=== PATIENT | male | born 1965 | race Caucasian/White ===

== ENCOUNTER 2025-01-21 09:14 | Outpatient (AMB) | payer OTHER, SELFPAY ==
--- NOTE | 2025-01-21 09:16 | MHC.PC.OV ---
Vital Signs 01/21/25 09:23 01/21/25 09:47 Height 5 ft 10 in Weight 186 lb 6 oz BMI 26.7 BP 158/90 H 160/90 H Blood Pressure Location Rt brachial Rt brachial Position Sitting Sitting Respiration 13 Pulse 102 H 98 Pulse Source Pulse Oximeter Pulse Oximeter Temp 97.5 F Temp Source Oral Pulse Oximetry (%) 99 Oxygen Delivery Method Room Air Intake Visit Reasons: CPE Intake Note: New patient to establish care and cpe Snuff Blender Required: No Allergies No Known Allergies Allergy (Verified 01/21/25 09:36) Medication List - Last Reconciled 01/21/25 by KIRSTY Campo No Known Home Meds Tobacco use date assessed: 01/21/25 Dental Screening Dental Screen Date: 01/21/25 Did you have a dental visit in the last 12 months?: Yes Did you have a dental problem in the last 6 months where you did not have access to dental care?: No Was dental information given to patient?: Patient has dentist HPI HPI Comments History of Present Illness Details 59 y/o M with HTN, fhx pancreatic ca (dad), fhx liver ca Social: retired, was working in finance ,lives w/ Surgery: appendectomy; hemorrhoid and fissure repair; Fhx: Dad pancreatic ca, Mom liver ca; 1 bro and 1 sister alive and well; 3 children alive and well. Health Maintenance Tdap declined Flu declined Colon 2013; cologaurd ordered today Specialist Optho wears glasses, last exam June 2024 History of Present Illness The patient is a 59-year-old male presenting to [facility], for a CPE, & blood pressure management. Previous PCP Dr Payne, no records avail. Essential Hypertension: - Managed previously with losartan. Was on 100mg QD. - Ceased medication post-mcfp; initial normal readings at home. - Stress from home factors noted. - Current readin/90 mmHg. History of Appendicitis: - Appendectomy in 1983. History of Hemorrhoids: - Hemorrhoid surgery in 2012. Past Surgical History - Appendectomy in 1983 - Hemorrhoidectomy in 2012 Family History - Father due to pancreatic cancer - Mother with liver cancer Social History - Retired from a career in finance - Recently moved from [place], [place] to current location - with three children - Does not engage in regular exercise or express interest in weight management Health Maintenance - Declines flu vaccination & Tdap - Last colonoscopy in 2013 showed non-cancerous polyps; prefers Cologuard testing - Last eye exam conducted in June with no abnormalities found Review of Systems - Cardiovascular: Reports history of elevated blood pressure; Denies chest pain, denies shortness of breath - Gastrointestinal: Denies recent abdominal pain - Dermatological: Denies changes or concerns aside from acknowledged weight gain - Genitourinary: Denies issues related to urination or prostate Physical Exam General: Well developed, well nourished, in no acute distress. Appears stated age. Head: Normocephalic, atraumatic. Eyes: Pupils are equal, round and reactive to light and accommodation. Conjunctivae are clear. Scleras nonicteric bilat. Vision grossly normal. Ears: TMs clear AU, EACS WNL. Nose: Patent, without discharge. Neck: No carotid bruit bilat. Supple, no adenopathy or thyromegaly. Breast: Edu on SBE Lungs: Clear to auscultation bilaterally. No rales, rhonchi or wheeze noted. Good air flow in all gaspar. Heart: Regular rate and rhythm. No murmurs, click, rubs or gallops are noted. Abdomen: Bowel sounds present in all quadrants. The abdomen is soft, nontender, with no masses or organomegaly noted. No hernias are noted. : Deferred. Reviewed WILLIE & recommendations Pulses: Peripheral pulses are equal and palpable bilaterally. Extremities: No clubbing, cyanosis nor edema is noted. Neurologic: Gait and station normal. Cranial Nerves 2-12 intact. Motor strength grossly symmetrical and intact. No sensory loss. Balance normal. Skin: No rashes, ulcers, or lesions noted. Turgor is good. Skin color is good. Hair and nails are without abnormalities, small flat black mole posterior back, 2 slightly raised pink skin lesion on back. Psych: Normal eye contact, affect and mood appropriate, and normal interactions. Patient is alert and appropriate to context. Results Pending Discussion Notes During our discussion, I emphasized the current elevated status of the patient's blood pressure, currently at 160/90 mmHg, which necessitates re-initiation of antihypertensive therapy. The patient had previously used losartan, which I recommended restarting at 25 mg & titrate to effect. I highlighted the importance of monitoring serum electrolytes and kidney function due to the medication's effect. For colorectal screening, I reviewed the option of the Cologuard test which was well-received compared to a traditional colonoscopy. Despite declining a tetanus update or flu vaccine, we discussed its importance in preventive care. The urgency of follow-up in the next six to eight weeks for a reassessment of therapy efficacy and potential labs for formal checks was also articulated. I ensured the patient understood the portal access for direct communication and encouraged active involvement in health management decisions. Patient was given time to ask questions. All questions were answered to their satisfaction. Assessment and Plan 1. Essential Hypertension - Start losartan 25 mg daily. - Check electrolytes and renal function. - Reassess blood pressure control in six to eight weeks. 2. Preventive Care/Health Maintenance - Proceed with Cologuard for colorectal screening. - Labs today 3. Skin examination - Inform about dermatology options if warranted. - Declined referral @ this time. Patient Instructions - Start taking the losartan 25 mg daily as prescribed. - Await Cologuard test delivery and return sample as instructed. - Look out for portal email for communication and sign-up. - Visit lab for blood draw as directed after scheduling. - Report any adverse effects from medication or changes in health. - Schedule a follow-up visit in six to eight weeks or call sooner if issues arise. Consent Verbal consent was obtained from the patient for the initiation of losartan 25 mg daily, understanding the risks of electrolyte imbalance and the necessity for lab monitoring to address these. The patient agreed to perform Cologuard testing and understood the alternative benefits compared to colonoscopy in terms of convenience and non-invasiveness. Consent was discussed emphasizing informed patient choice and active involvement in health care decisions. Patient was informed and verbally consented to the use of an ambient scribe for clinic note documentation during this visit. An additional 15 minutes was spent addressing the problem(s) noted at todays visit. This includes time spent before the visit reviewing the chart, time spent during the visit, and time spent after the visit on documentation reviewing laboratory results, diagnostic imaging, medications, performing a medically necessary evaluation, counseling on diagnoses, care coordination, ordering appropriate tests, ordering appropriate medications, review of tests performed by other providers, reporting test results with the patient, communication with other healthcare providers. [facility] Medical History (Updated 01/21/25 @ 10:02 by Doris Candelaria [facility]) Acute hemorrhoid Surgical History (Updated 01/21/25 @ 09:28 by Radha Cavazos MA) Hx of appendectomy Hx of colonoscopy (~06/2013) Family History (Updated 01/21/25 @ 09:29 by Radha Cavazos MA) Mother HTN (hypertension) Cancer Father Cancer Sister Thyroid disorder Social History (Updated 01/21/25 @ 09:26 by Radha Cavazos MA) Household Members: Spouse Both parents involved: No Caregiver staying overnight: No Housing: Condominium Are you a primary care information associate to a significant other at home: No Do you presently have visiting nurse or other home services: No 75 years or older and lives alone: No Alcohol intake: current Alcohol intake frequency: a few times a month Patient Tobacco Use Status: Never used Tobacco e-Cigarette/Vaping Use: Never Used Second Hand Smoke Exposure: No service: No Current occupational status: retired Current occupational exposures/hazards: No Cognitive needs: No Hearing needs: No Vision needs: Yes (wear glasses) Questionnaire PHQ-9 Over the last 2 weeks, how often have you been bothered by any of the following problems? 1. Little interest or pleasure in doing things: not at all 2. Feeling down, depressed, or hopeless: not at all 3. Trouble falling or staying asleep, or sleeping too much: not at all 4. Feeling tired or having little energy: not at all 5. Poor appetite or overeating: not at all 6. Feeling bad about yourself - or that you are a failure or have let yourself or your family down: not at all 7. Trouble concentrating on things, such as reading the newspaper or watching television: not at all 8. Moving or speaking so slowly that other people could have noticed. Or the opposite - being so fidgety or restless that you have been moving around a lot more than usual: not at all 9. Thoughts that you would be better off or of hurting yourself in some way: not at all Total score: 0 Depression Screening Interpretation: Negative Depression Screening Done: Yes 68384 - PHQ-9 Billing: Yes Source: Developed by Drs. Dannie Hawkins, Mercy Sprague, Tomer Issa and colleagues, with an educational salvatore from [employer]. Thrive Questionnaire Date Thrive assessed: 01/21/25 I am a: Patient What is your living situation today?: I have a steady place to live Within the past 12 months, did the food you bought not last and you didn't have the money to get more?: Never true Within the past 12 months, did you worry whether your food would run out before you got money to buy more?: Never true Do you have trouble paying for medicines?: No Do you have trouble getting transportation to medical appointments?: No Do you have trouble paying your heating and electricity bill?: No Do you have trouble taking care of your child, family member or friend?: No Do you have trouble with day-to-day activities such as bathing, preparing meals, shopping, managing finances, etc.?: No Are you currently unemployed and looking for a job?: No Are you interested in more education?: No Please select the resources that you would like help with: None Currently or been in a relationship where the following occur: No concerns reported THRIVE Score: 0 AUDIT C Alcohol Use Questionnaire (AUDIT-C) 1. How often do you have a drink containing alcohol?: 4 or more times a week 2. How many drinks containing alcohol do you have on a typical day when you are drinking?: 10 or more 3. How often do you have six or more drinks on one occasion?: Weekly Total Score: 11 Score Reviewed/Action Taken: Yes JACQUIE-7 AMB Questionnaire JACQUIE-7 Date JACQUIE - 7 assessed: 01/21/25 Feeling nervous, anxious, or on edge: 0 = Not at all Not being able to stop or control worryin = Not at all Worrying too much about different things: 0 = Not at all Trouble relaxin = Not at all Being so restless that it is hard to sit still: 0 = Not at all Becoming easily annoyed or irritable: 0 = Not at all Feeling afraid as if something awful might happen: 0 = Not at all Total JACQUIE-7 score (0-4 normal; 5-9 mild; 10-14 moderate; 15-21 severe): 0 Source: Developed by Drs. Dannie Hawkins, Mercy Sprague, Tomer Issa and colleagues, with an educational salvatore from [employer]. JCAQUIE-7 Assessment Billing JACQUIE-7 Assessment Tool: JACQUIE-7 Assessment 30547 Physical exam (Primary Care) Vital Signs: Last Vital Signs Temp 97.5 F 01/21/25 09:23 Pulse 102 H 01/21/25 09:23 Resp 13 01/21/25 09:23 BP 158/90 H 01/21/25 09:23 Pulse Ox 99 01/21/25 09:23 Oxygen Delivery Method Room Air 01/21/25 09:23 BMI result Body Mass Index 26.7 Tobacco/Smoking Status: Tobacco use Status Tobacco use date assessed 01/21/25 01/21/25 09:21 Patient Tobacco Use Status Never used Tobacco 01/21/25 09:26 e-Cigarette/Vaping Use Never Used 01/21/25 09:26 PHQ-9: PHQ-9 Score PHQ-9: Total score 0 01/21/25 09:21 Depression Screening Interpretation: Negative Thrive Assessment: Date of Thrive Assessment Date Thrive assessed 01/21/25 01/21/25 09:21 Currently or been in a relationship where the following occur: No concerns reported Coding Level of Care Code New Pt Level 2 (93832) New Pt Prev Care 40-64y(12346) Diagnoses Encounter for general adult medical examination without abnormal findings Z00.00 Laboratory exam ordered as part of routine general medical examination Z00.00 Primary hypertension I10 Hypertension type: primary hypertension Family history of liver cancer Z80.0 Family history of pancreatic cancer Z80.0 Tetanus, diphtheria, and acellular pertussis (Tdap) vaccination declined Z28.21 Influenza vaccination declined Z28.21 Colon cancer screening Z12.11 Skin mole D22.9 Encounter to establish care with new provider Z76.89 Additional Codes JACQUIE-7 Assessment Billing - JACQUIE-7 Assessment Tool: JACQUIE-7 Assessment 58140 ([id number]) PHQ-9 - 48415 - PHQ-9 Billing: Yes ([id number]) Assessment & Plan Assessment & Plan (1) Encounter for general adult medical examination without abnormal findings: Onset Date: ~01/21/25 Code(s): Z00.00 - Encounter for general adult medical examination without abnormal findings Category: Medical (2) Laboratory exam ordered as part of routine general medical examination: Code(s): Z00.00 - Encounter for general adult medical examination without abnormal findings Category: Medical (3) HTN (hypertension): Code(s): I10 - Essential (primary) hypertension Category: Medical Qualifiers: Hypertension type: primary hypertension Qualified Code(s): I10 - Essential (primary) hypertension (4) Family history of liver cancer: Comment: Mom Code(s): Z80.0 - Family history of malignant neoplasm of digestive organs Category: Medical (5) Family history of pancreatic cancer: Comment: dad Code(s): Z80.0 - Family history of malignant neoplasm of digestive organs Category: Medical (6) Tetanus, diphtheria, and acellular pertussis (Tdap) vaccination declined: Code(s): Z28.21 - Immunization not carried out because of patient refusal Category: Medical (7) Influenza vaccination declined: Code(s): Z28.21 - Immunization not carried out because of patient refusal Category: Medical (8) Colon cancer screening: Code(s): Z12.11 - Encounter for screening for malignant neoplasm of colon Category: Medical (9) Skin mole: Comment: declined derm referral Code(s): D22.9 - Melanocytic nevi, unspecified Category: Medical (10) Encounter to establish care with new provider: Code(s): Z76.89 - Persons encountering health services in other specified circumstances Plan , Orders: Orders Hemoglobin A1c Today I10 - Essential (primary) hypertension, Z00.00 - Encounter for general adult medical examination without abnormal findings Comprehensive Met. Panel Today I10 - Essential (primary) hypertension, Z00.00 - Encounter for general adult medical examination without abnormal findings Lipid Panel Today I10 - Essential (primary) hypertension, Z00.00 - Encounter for general adult medical examination without abnormal findings Prostate Specific Antigen Scr Today I10 - Essential (primary) hypertension, Z00.00 - Encounter for general adult medical examination without abnormal findings Referrals Cologuard Test Z12.11 - Encounter for screening for malignant neoplasm of colon Medications: New losartan 25 mg PO DAILY 90 tabs 0RF Patient Instructions: Walk-In Care (Urgent Care): We Make it Easy Walk-in for urgent medical issues such as: ? Seasonal Allergies ? Insect Bites ? Cough ? Diarrhea ? Acute Asthma Attacks ? Back, Knee or Joint Pain ? Ear Infection ? Fever without a Rash ? Headaches ? Nausea ? [place], Rash or Skin Irritation ? Sore Throat ? Sports Physicals ? Vomiting Most insurances are accepted. Patients do not need to be part of the [facility] to seek care at the walk-in clinic. Locations [address] [place], [place] Open Saturday through Saturday 8am-5pm *Hours may vary due to staffing availability. To confirm Walk-In Care hours please call. [address] [facility] , [place] [address] ? [phone] [facility] Care in [place] provides services to ages 18 and over. Open Saturday-Saturday: 7 a.m. to 5 p.m. and Saturday: 9 a.m. to 3 p.m.* *Hours may vary due to staffing availability. To confirm Walk-In Care hours in [place], please call [phone]. [address] [place] [address] ? [phone] [facility] Care in [place] provides services to ages 12 and over. Open Saturday-Saturday: 8 a.m. to 5 p.m. Hours may vary due to staffing availability. To confirm Walk-In Care hours in [place], please call [phone]. LABORATORY SERVICES: [facility] ? Primary Location [address] [place] [address] Saturday through Saturday 6:00 AM ? 5:00 PM Saturday 7:00 AM ? 11:00 AM* [phone] The [facility] is centrally located near the front entrance of the [facility] for easy outpatient access. Convenient parking is provided for outpatients. *Hours may vary due to staffing availability. To confirm Laboratory hours for any location, please call [phone]. Offsite Location For your convenience, we offer offsite laboratory draw stations at the following locations: [address] [place] [address] ? [facility] [address], [address] Saturday through Saturday 7:30 AM ? 1:00 PM* [phone] *Hours may vary due to staffing availability. To confirm Laboratory hours for any location, please call [phone]. [place] ? [address] Saturday through Saturday 6:00 AM ? 3:30 PM* Saturday 6:30 AM ? 3 PM* [phone] *Hours may vary due to staffing availability. To confirm Laboratory hours for any location, please call [phone]. [address] [facility] Saturday through Saturday 7:30 AM ? 4:00 PM* [phone] *Hours may vary due to staffing availability. To confirm Laboratory hours for any location, please call [phone]. [address] [facility] Saturday through 9:00 AM ? 4:00 PM* *Hours may vary due to staffing availability. To confirm Laboratory hours for any location, please call [phone]. Appointments are not necessary. Walk-ins are welcome. Like all the departments throughout the [facility], our Lab undergoes frequent reviews to ensure the quality and accuracy of test results, and our staff takes special pride in its status as a nationally accredited facility. Patient Portal: [facility] ONE PATIENT. ONE RECORD. BETTER CARE. [facility] has a fully integrated, cutting-edge mobile electronic health information system that has revolutionized the way we care for our patients and manage our organization. This system improves communication and coordination enabling us to provide safe, higher-quality care, and an overall positive experience for staff and patients. Our first priority, as always, is to deliver the highest quality care possible. The system is running in the background supporting that priority. This portal is for all [facility] services and practices. If you are experiencing any technical difficulties with enrolling or logging into the Patient Portal please complete the [facility] Patient Portal Technical Support Form. [facility] now offers a new secure on-line interactive tool for patients to review their health information ? ?Patient Portal. This interactive web portal will enable patients and their families to take an active role in their care by providing easy, secure access to their health information via the internet. The Patient Portal provides patients with instant access to their health information, including laboratory results, medications, allergies, demographic information, visit history, and more. In addition to managing their own care, parents and health care proxies with authorized consent will appreciate the ability to access the records of those individuals for whom they provide care. Please note: if you wish to gain access (Proxy) to another patient?s portal, you will be required to come to the Medical Records Department in person at [facility]. Both the patient giving proxy access and the proxy will need to provide photo identification and complete the appropriate authorization. The Patient Portal also allows track their appointments online. The [facility] Patient Portal also saves patients time by allowing them to submit updates to their demographic and contact information prior to their visits. Portal email notifications will also alert patients to any new activity on their portal, such as test results and new appointments. In order to initially enroll in the [facility] Patient Portal, you will need to enter some required information including the following: your [facility] Medical Record number your personal home email address name date of Please note: In order to enroll in the [facility] Patient Portal, we need to have your email address on file in your electronic medical record. ?The email address needs to be specific for one person (yourself) in order for your Portal enrollment to be successful. ?You can update your email address in person with our Registration staff when you are registering for a hospital visit. ?Otherwise, you will need to come to the Health Information Management (Medical Records) Department at [facility]. ?We are open from Saturday ? Saturday from 7:30 a.m. ? 4:30 p.m. ?You will be required to present a photo id. Once you have successfully enrolled in the Patient Portal, you will receive a one-time user id and password for the Portal, sent to your email address. ?This will allow you to log into the Patient Portal within 99 hrs and reset your own logon id and password, and define personal security questions. ?Once your permanent login and password have been set, you can log into the [facility] Patient Portal at any time via the blue button above or from the Portal Logon button on any page of the [facility] website. [facility] encourage all of our patients to enroll in Patient Portal as it presents a valuable opportunity for patients and their families to actively participate in their care and stay healthy Welcome to [facility]. ?We look forward to working with you. Health screenings for men You should visit your health care provider regularly, even if you feel healthy. The purpose of these visits is to: Screen for medical issues Assess your risk for future medical problems Encourage a healthy lifestyle Update vaccinations and other preventive care services Help you get to know your provider in case of an illness Information Even if you feel fine, you should still see your provider for regular checkups. These visits can help you avoid problems in the future. For example, the only way to find out if you have high blood pressure is to have it checked regularly. High blood sugar and high cholesterol level also may not have any symptoms in the early stages. Simple blood tests can check for these conditions. There are specific times when you should see your provider or receive specific health screenings. The [place] Preventive Services Task Force publishes a list of recommended screenings. Below are screening guidelines for men ages 40 to 64. BLOOD PRESSURE SCREENING Have your blood pressure checked at least once every year. Watch for blood pressure screenings in your area. Ask your provider if you can stop in to have your blood pressure checked. Ask your provider if you need your blood pressure checked more often if: You have diabetes, heart disease, kidney problems, or are overweight or have certain other health conditions You have a first-degree relative with high blood pressure You are Black Your blood pressure top number is from 120 to 129 mm Hg, or the bottom number is from 70 to 79 mm Hg If the top number is 130 mm Hg or greater or the bottom number is 80 mm Hg or greater, this is considered stage 1 hypertension. Schedule an appointment with your provider to learn how you can lower your blood pressure. Effects of age on blood pressure CHOLESTEROL SCREENING Cholesterol screening should begin at age 35 for men with no known risk factors for coronary heart disease. Repeat cholesterol screening should take place: Every 5 years for men with normal cholesterol levels More often if changes occur in lifestyle (including weight gain and diet) More often if you have diabetes, heart disease, kidney problems, or certain other conditions COLORECTAL CANCER SCREENING If you are under age 45, talk to your provider about getting screened. You may need to be screened if you have a strong family history of colon cancer or polyps. Screening may also be considered if you have risk factors such as a history of inflammatory bowel disease or polyps. If you are age 45 to 75, you should be screened for colorectal cancer. There are several screening tests available: A stool-based fecal occult blood (gFOBT) or fecal immunochemical test (FIT) every year A stool sDNA test every 1 to 3 years Flexible sigmoidoscopy every 5 years or every 10 years with stool testing FIT done every year CT colonography (virtual colonoscopy) every 5 years Colonoscopy every 10 years You may need a colonoscopy more often if you have risk factors for colorectal cancer, such as: Ulcerative colitis A personal or family history of colorectal cancer A history of growths in your colon called adenomatous polyps DENTAL EXAM Go to the dentist once or twice every year for an exam and cleaning. Your dentist will evaluate if you have a need for more frequent visits. DIABETES SCREENING All adults who do not have risk factors for diabetes should be screened starting at age 35 and repeated every 3 years. If you have other risk factors for diabetes, such as a first degree relative with diabetes, overweight or obesity, high blood pressure, prediabetes, or a history of heart disease, you may be tested more often. If you are overweight and have other risk factors, such as high blood pressure and are planning to become , screening is recommended. EYE EXAM Have an eye exam every 2 to 4 years ages 40 to 54 and every 1 to 3 years ages 55 to 64. Your provider may recommend more frequent eye exams if you have vision problems or glaucoma risk. Have an eye exam that includes an examination of your retina (back of your eye) at least every year if you have diabetes. IMMUNIZATIONS Commonly needed vaccines include: Flu shot: get one every year COVID-19 vaccine: ask your provider what is best for you Tetanus-diphtheria and acellular pertussis (Tdap) vaccine: have as one of your tetanus-diphtheria vaccines if you did not receive it as an adolescent Tetanus-diphtheria: have a booster (or Tdap) every 10 years Varicella vaccine: receive 2 doses if you never had chickenpox or the varicella vaccine and were born in 1979 or after Hepatitis B vaccine: receive 2, 3, or 4 doses, depending on your exact circumstances, if you did not receive these as a child or adolescent, until age 59 Shingles (herpes zoster) vaccine: at or after age 50 Ask your provider if you should receive other immunizations, especially if you have certain medical conditions, such as diabetes or are at increased risk for some diseases such as pneumonia. INFECTIOUS DISEASE SCREENING Screening for hepatitis C: all adults ages 18 to 79 should get a one-time test for hepatitis C. Screening for human immunodeficiency virus (HIV): all people ages 15 to 65 should get a one-time test for HIV. Depending on your lifestyle and medical history, you may need to be screened for infections such as syphilis, chlamydia, and other infections. LUNG CANCER SCREENING You should have an annual screening for lung cancer with low-dose computed tomography (LDCT) if: You are age 50 to 80 years AND You have a 20 pack-year smoking history AND You currently smoke or have quit within the past 15 years OSTEOPOROSIS SCREENING If you are age 50 to 64 and have risk factors for osteoporosis, you should discuss screening with your provider. Risk factors can include long-term steroid use, low body weight, smoking, heavy alcohol use, having a fracture after age 50, or a family history of hip fracture or osteoporosis. Osteoporosis PHYSICAL EXAM All adults should visit their provider from time to time, even if they are healthy. The purpose of these visits is to: Screen for diseases Assess risk of future medical problems Encourage a healthy lifestyle Update vaccinations and other preventive care services Maintain a relationship with a provider in case of an illness Your height, weight, and body mass index (BMI) should be checked at every exam. During your exam, your provider may ask you about: Depression and anxiety Diet and exercise Alcohol and tobacco use Safety, such as use of seat belts and smoke detectors Your medicines and risk for interactions PROSTATE CANCER SCREENING If you're 55 through 69 years old, before having the test, talk to your provider about the pros and cons of having a PSA test. Ask about: Whether screening decreases your chance of dying from prostate cancer. Whether there is any harm from prostate cancer screening, such as side effects from testing or overtreatment of cancer when discovered. Whether you have a higher risk of prostate cancer than others. If you are age 55 or younger, screening is not generally recommended. You should talk with your provider about if you have a higher risk for prostate cancer. Risk factors include: Having a family history of prostate cancer (especially a brother or father) Being If you choose to be tested, the PSA blood test is repeated over time (yearly or less often), though the best frequency is not known. Prostate examinations are no longer routinely done on men with no symptoms. Prostate cancer SKIN EXAM Your provider may check your skin for signs of skin cancer, especially if you're at high risk. People at high risk include those who have had skin cancer before, have close relatives with skin cancer, or have a weakened immune system. TESTICULAR EXAM The [place] Preventive Services Task Force (USPSTF) now recommends against performing testicular self-exams. Doing testicular self-exams has been shown to have little to no benefit.
[2025-01-21 09:23] VITALS: BP 158/90; PULSE 102; RESP 13; TEMP 36.4; O2SAT 99; BMI 26.7
[2025-01-21 09:47] VITALS: BP 160/90; PULSE 98
--- OUTSIDE RECORDS SUMMARY | 2025-01-21 10:25 | XMS_ITS | Patient Health Record ---
Author Organization [facility] Primary C are [facility] Address [address] [place] [address] Care Team Providers Care Fish Grader Name Role Phone Jony Krupa Primary Care Provider Reason For Referral No Information Medications Medication SIG (Take, Route, Frequency, Duration) Notes Start Date End Date Status Zithromax 500MG TAB 1 Every Day pc ORAL 1 Every Day pc; Duration: 0 (Olivier) 06/10/2009 Active Rondec DM 3.5-1-3MG/ML LIQUID 2 tsp q 6 hr prn ORAL 2 tsp q 6 hr prn; Duration: 0 (Olivier) 06/10/2009 Active Social History Social History Drugs/Alcohol: Social Info Question Answer Notes Drugs Have you used drugs other than those for medical reasons in the past 12 months? No Problems Problem Type SNOMED Code ICD Code Onset Dates Problem Status W/U Status Risk Notes Problem Urinary tract infectious disease (47253960) Urinary tract infection, site not specified (599.0) 12/15/19 04 Active confirmed (Olivier) Problem Dysuria (97125016) Dysuria (788.1) 12/28/19 04 Active confirmed (Olivier) Problem General examination of patient (935916936) ANNUAL PHYSICAL (V70.0) 01/07/20 04 Active confirmed (Olivier) Problem Venereal disease screening (procedure) (875861433) Screening examination for venereal disease (V74.5) 03/12/20 05 Active confirmed (Olivier) Problem Acute upper respiratory infection (49918788) Acute upper respiratory infections of unspecified site (465.9) 09/18/19 08 Active confirmed (Olivier) Problem Acute pain (960519485) Other acute pain (338.19) 01/27/20 10 Active confirmed (Olivier) Problem Nicotine user (653806042) Nicotine Abuse (305.1) 03/12/20 05 Active confirmed (Olivier) Problem Hyperlipidemia (78292609) Other and unspecified hyperlipidemia (272.4) 03/12/20 05 Active confirmed (Olivier) Problem Hypothyroidism (33035891) Unspecified hypothyroidism (244.9) 03/12/20 05 Active confirmed (Olivier) Plan Of Treatment No Information
--- OUTSIDE RECORDS SUMMARY | 2025-01-21 10:26 | XMS_ITS | Patient Health Record ---
Author Organization [facility] Address [address] [place] [address] Care Team Providers Care Drill Press Tender Name Role Phone Gene Hsieh Primary Care Provider Shine Ennis Unavailable [phone] Allergies No Known Allergies Reason For Referral No Information Medications Medication SIG (Take, Route, Frequency, Duration) Notes Start Date End Date Status Clenpiq 10-3.5-12 MG-GM -GM/175ML Solution Follow instructions given by office Orally as directed; Duration: 2 days 12/26/2022 Activ e Losartan Potassium A ctive Social History Social History Additional Details Category Social Info Options Details Drugs/Alcohol: Alcohol Use: NONE Tobacco use NONE Section Notes: No history of drug abuse. No history of drug abuse. No history of drug abuse. No history of smoking alcoho l and substance abuse. 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 This is likely from hemorrhoids. He may have proctitis, colitis, colon polyps or colonic AVMs. Problem Constipation (10778840) Constipation, unspecified (K59.00) Active confirmed Constipation is nonspecific and stable. Problem Abnormal weight loss (178992330) Abnormal weight loss (R63.4) Active confirmed Weight loss is stabilized at this time. Problem Hemorrhoids (43773772) Hemorrhoids (455.0) Active confirmed Problem Constipation (25079633) Constipation (564.00) Active confirmed Constipation is nonspecific. Problem Rectal mass (601912308) Rectal Mass (787.99) Active confirmed Problem Screening for malignant neoplasm of colon (923147706) Encounter for screening for malignant neoplasm of colon (Z12.11) Active confirmed He is a candidate for screening colonoscopy. I had a long discussion with the patient reviewed all the information with him regarding colonoscopy. He is agreeable to have a colonoscopy done. Plan Of Treatment Pending Test Test Name Order Date -COLONOSCOPY 12/26/2022 Insurance Providers Payer Name Payer Address Payer Phone Subscriber Number Group Number Insured Name Patient Relationship to Insured Coverage Start Date Coverage End Date [employer] [address] [place] [address] [id number] Evan Carmen Self - patient is the insured Medical (General) History Medical History History ICD Code nonsignificant Surgical History Surgery Date(Month/Year) Appendectomy
== END 2025-01-21 09:58 | disposition home or self-care (01) ==
LOC: HO.HMCFM 09:15
PROVIDERS: PCP Nurse Practitioner Family; Visit Provider Nurse Practitioner Family
DX: Z00.00 Encounter for general adult medical examination without abnormal findings (principal); I10 Essential (primary) hypertension; D22.9 Melanocytic nevi, unspecified; Z80.0 Family history of malignant neoplasm of digestive organs; Z28.21 Immunization not carried out because of patient refusal; Z12.11 Encounter for screening for malignant neoplasm of colon; Z76.89 Persons encountering health services in other specified circumstances

== ENCOUNTER → 2025-01-21 09:14 | Outpatient (BNVA) | payer OTHER, SELFPAY | PROVIDERS: PCP Nurse Practitioner Family; Visit Provider Nurse Practitioner Family | DX: Z00.00 Encounter for general adult medical examination without abnormal findings (principal); I10 Essential (primary) hypertension; D22.9 Melanocytic nevi, unspecified; Z76.89 Persons encountering health services in other specified circumstances; Z80.0 Family history of malignant neoplasm of digestive organs; Z28.21 Immunization not carried out because of patient refusal | CPT/HCPCS: 96127; 99202; 99386 ==

== ENCOUNTER 2025-02-24 07:34 | Outpatient (REF) | payer OTHER, SELFPAY ==
[2025-02-24 10:43] LABS: Alanine Aminotransferase 56 U/L (0-40); Albumin Level 4.4 g/dL (3.5-5.0); Alkaline Phosphatase 62 U/L (39-117); Anion Gap 13 (12-20); Aspartate Amino Transferase 58 U/L (5-37); Blood Urea Nitrogen 11 mg/dL (9-16); Calcium 9.2 mg/dL (8.4-10.2); Carbon Dioxide 29 mmol/L (22-29); Chloride 98 mmol/L (96-108); Cholesterol 209 mg/dL (<200); Estimated Glomerular Filt Rate > 60; HDL Cholesterol 82 mg/dL (>40); Potassium 4.2 mmol/L (3.3-5.1); Sodium 136 mmol/L (135-145); Total Protein 7.2 g/dL (6.5-8.0); Triglycerides 74 mg/dL (<150)
--- OUTSIDE RECORDS SUMMARY | 2025-02-24 15:06 | XMS_ITS | Patient Health Record ---
Author Organization [facility] Primary C are [facility] Address [address] [place] [address] [address] [place] [address] Care Team Providers Care Food Service Ambassador Name Role Phone Jony Krupa Primary Care [...] Problem Status W/U Status Risk Notes Problem Acute upper respiratory infection (86820048) Acute upper respiratory infections of unspecified site (465.9) 09/18/19 08 Active confirmed (Olivier) Problem Acute pain (632801060) Other acute pain (338.19) 01/27/20 10 Active confirmed (Olivier) Problem Hypothyroidism (75630308) Unspecified hypothyroidism (244.9) 03/12/20 05 Active confirmed (Olivier) Problem Hyperlipidemia (06923516) Other and unspecified hyperlipidemia (272.4) 03/12/20 05 Active confirmed (Olivier) Problem Nicotine user (028613043) Nicotine Abuse (305.1) 03/12/20 05 Active confirmed (Olivier) Problem Venereal disease screening (procedure) (253679917) Screening examination for venereal disease (V74.5) 03/12/20 05 Active confirmed (Olivier) Problem General examination of patient (444952596) ANNUAL PHYSICAL (V70.0) 01/07/20 04 Active confirmed (Olivier) Problem Dysuria (61715651) Dysuria (788.1) 12/28/19 04 Active confirmed (Olivier) Problem Urinary tract infectious disease (52843322) Urinary tract infection, site not specified (599.0) 12/15/19 04 Active confirmed (Olivier) Plan Of Treatment No Information
== END 2025-02-24 07:35 | disposition home or self-care (01) ==
LOC: HO.HMGCLDS 07:34
PROVIDERS: PCP Nurse Practitioner Family; Visit Provider Nurse Practitioner Family
DX: Z00.00 Encounter for general adult medical examination without abnormal findings (principal); I10 Essential (primary) hypertension
CPT/HCPCS: 36415; 80053; 80061; 83036; 84153

== ENCOUNTER 2025-03-03 09:35 | Outpatient (AMB) | payer OTHER, SELFPAY ==
--- NOTE | 2025-03-03 09:37 | A.OFFPC_ITS ---
Vital Signs 03/03/25 09:40 03/03/25 10:01 Height 5 ft 10 in Weight 187 lb 8 oz BMI 26.9 BP 162/80 H 138/76 Blood Pressure Location Lt brachial Lt brachial Position Sitting Sitting Respiration 14 Pulse 93 Pulse Source Pulse Oximeter Temp 97.6 F Temp Source Oral Pulse Oximetry (%) 98 Oxygen Delivery Method Room Air Intake Visit Reasons: 6 -8 weeks BP recheck Intake Note: Follow up on htn. Ingot Buggy Operator Required: No Allergies No Known Allergies Allergy (Verified 03/03/25 09:54) Medication List - Last Reconciled 03/03/25 by Doris Candelaria, NURSING MANAGER- losartan 25 mg PO DAILY Tobacco use date assessed: 03/03/25 Dental Screening Dental Screen Date: 03/03/25 Did you have a dental visit in the last 12 months?: Yes Did you have a dental problem in the last 6 months where you did not have access to dental care?: No Was dental information given to patient?: Patient has dentist HPI HPI Comments History of Present Illness Details 59 y/o M with HTN, fhx pancreatic ca (da d), fhx liver ca, elevated LFT Social: retired, was working in finance ,lives w/ Surgery: appendectomy; hemorrhoid and fissure repair; Fhx: Dad pancreatic ca, Mom liver ca; 1 bro and 1 sister alive and well; 3 children alive and well. Health Maintenance Tdap declined Flu declined Colon 2013; cologaurd 02/2025 negative Specialist Optho wears glasses, last exam June 2024 History of Present Illness The patient is a 60-year-old individual presenting for a follow-up of hypertension. Hypertension: - The patient was started on losartan 25 mg daily at the last office visit. - The patient has not been monitoring bl ood pressure at home. - The patient denies any chest pain, hea daches, or visual disturbances. - The patient has a history of passing o ut twice on a 100 mg dose of losartan previously. Elevated liver enzymes: - Labs from February 24 showed an AST of 58 and an ALT of 56. - The patient has no prior history of el evated liver enzymes. - The patient reports a recent increase in alcohol intake due to social gatherings before an upcoming trip. - The patient denies any abdominal pain. Hypercholesterolemia: - Recent lab results showed a total chol esterol of 209 and an LDL of 113. - The patient's HDL was noted to be prot ective at 82. Preventative care: - A recent Cologuard test was negative, and a repeat is recommended in three years. - The initial Cologuard test had to be r epeated due to a problem with the first sample, possibly related to a missing buffering agent. - The patient's PSA for prostate screeni ng was normal at 1.4. Going to [place] w/ ; Dtr just had a baby (lives in [place]) Past Medical History - Hypertension - History of syncope on 100 mg of losart an - Plantar fasciitis Review of Systems - Cardiovascular: Denies chest pain. - Neurological: Denies headaches and vis ual disturbances. - Gastrointestinal: Denies abdominal kandice n. Physical Exam General: Well developed, well nourished, in no acute distress. Appears stated age. Head: Normocephalic, atraumatic. Eyes: Pupils are equal, round and reactive to light and accommodation. Conjunctivae are clear. Scleras nonicteric bilat Lungs: Clear to auscultation bilaterally. No rales, rhonchi or wheeze noted. Good air flow in all gaspar. Heart: Regular rate and rhythm. No murmurs, click, rubs or gallops are noted. Abdomen: Bowel sounds present in all quadrants. The abdomen is soft, nontender, with no masses or organomegaly noted. No hernias are noted. Musculoskeletal: Joints are nontender, without swelling, redness, or effusions. Pulses: Peripheral pulses are equal and palpable bilaterally. Extremities: No clubbing, cyanosis nor edema is noted. Psych: Mood and affect appropriate. Results - Labs (02/24): - Electrolytes: Normal. - Kidney function: Normal. - A1c: 5.3%. - AST: 58 U/L (ref < 37). - ALT: 56 U/L (ref < 37). - Total Cholesterol: 209 mg/dL (ref < 20 0). - LDL: 113 mg/dL (ref < 100). - HDL: 82 mg/dL (ref > 40). - PSA: 1.4 ng/mL. - Tests and Diagnostics: - Cologuard: Negative. Medical Decision Making The patient is a 60-year-old individual presenting for a follow-up on hypertension. The patient's blood pressure in the office was 138/76 mmHg, which is well-controlled on the current dose of losartan 25 mg daily. Given the patient's history of syncope with a 100 mg dose of losartan, no titration is warranted at this time, and the patient will continue the current 25 mg dose. A review of recent labs showed mild elevations in liver enzymes (AST 58, ALT 56), which are not considered catastrophic and are likely related to the patient's reported recent increase in alcohol consumption. These will be monitored without immediate intervention as the patient is asymptomatic. The cholesterol panel showed an LDL of 113 and total cholesterol of 209, but the risk is mitigated by a highly protective HDL of 82; therefore, no lipid-lowering therapy is indicated. Preventative screenings are up to date, with a recent negative Cologuard and a normal PSA. The plan includes sending a 90-day prescription of losartan 25 mg with refills, instructing the patient on home blood pressure monitoring, and advising the patient to schedule an annual physical for January of next year. Plan 1. Hypertension - The patient's blood pressure is 138/76 mmHg on losartan 25 mg daily. - Given the good control and a history o f syncope with a higher dose of 100 mg, the plan is to continue the current dosage of 25 mg. - A 90-day supply with refills will be s ent to the pharmacy. - The patient will start monitoring bloo d pressure at home after returning from travel and should report if readings trend upward. 2. Elevated Liver Enzymes - Recent labs showed mildly elevated AST at 58 and ALT at 56, which are considered non-catastrophic. - The elevation is likely due to a recen t increase in alcohol intake. - The plan is to monitor this, and the p atient is advised to report any new abdominal pain. 3. Hypercholesterolemia - Labs showed total cholesterol of 209 a nd LDL of 113, but the HDL is highly protective at 82. - The patient was reassured that due to the high HDL, the overall risk is low and no medication is needed at this time. 4. Health Maintenance - Cologuard test was negative, with a re commended repeat in three years. - PSA for prostate cancer screening was normal. - The patient was advised to schedule annual physical for January. Patient Instructions - Continue taking losartan 25 mg once a day for your blood pressure. - A new 90-day prescription with refills has been sent to the [facility] pharmacy on [address]. - Please start checking your blood press ure at home after you return from your trip. - Let us know if your blood pressure anders moreno start to go up. - Your recent lab work showed slightly h igh liver numbers, which is likely from recent alcohol use. We will keep an eye on this. - Your cholesterol numbers were a little high, but your good cholesterol is very protective, so you do not need medication at this time. - Your Cologuard test for colon cancer w as normal. You should repeat this test in 3 years. - Please schedule your next annual physi bree exam for January of next year, labs 1 week before Consent Patient was informed and verbally consented to the use of an ambient scribe for clinic note documentation during this visit. Total time spent caring for the patient today was 30 minutes. This includes time spent before the visit reviewing the chart, time spent during the visit, and time spent after the visit on documentation, reviewing laboratory results, diagnostic imaging, medications, performing a medically necessary evaluation, counseling on diagnoses, care coordination, ordering appropriate tests, ordering appropriate medications, review of tests performed by other providers, reporting test results with the patient, communication with other healthcare providers. [facility] Medical History (Updated 03/03/25 @ 07:28 by REX Campo-ALPHONSO) Acute hemorrhoid Surgical History (Updated 02/26/25 @ 10:33 by REX Campo-ALPHONSO) Hx of appendectomy Hx of colonoscopy (~02/26/25) Family History (Updated 01/21/25 @ 09:29 by Radha Cavazos MA) Mother HTN (hypertension) Cancer Father Cancer Sister Thyroid disorder Social History (Updated 01/21/25 @ 09:26 by Radha Cavazos MA) Household Members: Spouse Both parents involved: No Caregiver staying overnight: No Housing: Condominium Are you a primary insurance healthcare consultant to a significant other at home: No Do you presently have visiting nurse or other home services: No 75 years or older and lives alone: No Alcohol intake: current Alcohol intake frequency: a few times a month Patient Tobacco Use Status: Never used Tobacco e-Cigarette/Vaping Use: Never Used Second Hand Smoke Exposure: No service: No Current occupational status: retired Current occupational exposures/hazards: No Cognitive needs: No Hearing needs: No Vision needs: Yes (wear glasses) Questionnaire Thrive Questionnaire Date Thrive assessed: 01/21/25 I am a: Patient What is your living situation today?: I have a steady place to live Within the past 12 months, did the food you bought not last and you didn't have the money to get more?: Never true Within the past 12 months, did you worry whether your food would run out before you got money to buy more?: Never true Do you have trouble paying for medicines?: No Do you have trouble getting transportation to medical appointments?: No Do you have trouble paying your heating and electricity bill?: No Do you have trouble taking care of your child, family member or friend?: No Do you have trouble with day-to-day activities such as bathing, preparing meals, shopping, managing finances, etc.?: No Are you currently unemployed and looking for a job?: No Are you interested in more education?: No Please select the resources that you would like help with: None Currently or been in a relationship where the following occur: No concerns reported THRIVE Score: 0 JACQUIE-7 AMB Questionnaire JACQUIE-7 Date JACQUIE - 7 assessed: 01/21/25 Source: Developed by Drs. Dannie Hawkins, Mercy Sprague, Tomer Issa and colleagues, with an educational salvatore from [email or web address]. Physical exam (Primary Care) Vital Signs: Last Vital Signs Temp 97.6 F 03/03/25 09:40 Pulse 93 03/03/25 09:40 Resp 14 03/03/25 09:40 BP 162/80 H 03/03/25 09:40 Pulse Ox 98 03/03/25 09:40 Oxygen Delivery Method Room Air 03/03/25 09:40 BMI result Body Mass Index 26.9 Tobacco/Smoking Status: Tobacco use Status Tobacco use date assessed 03/03/25 03/03/25 09:42 Patient Tobacco Use Status Never used Tobacco 03/03/25 09:42 e-Cigarette/Vaping Use Never Used 03/03/25 09:42 Thrive Assessment: Date of Thrive Assessment Date Thrive assessed 01/21/25 03/03/25 09:42 Currently or been in a relationship where the following occur: No concerns reported Results Reviewed Results Reviewed: 02/2025 negative cologaurd Laboratory 02/24/25 Result Units Range Interpretation Provider Comments Sodium Level 136 mmol/L (135-145) Potassium Level 4.2 mmol/L (3.3-5.1) Chloride Level 98 mmol/L (96-108) Carbon Dioxide Level 29 mmol/L (22-29) Anion Gap 13 (12-20) Blood Urea Nitrogen 11 mg/dL (9-16) Creatinine 0.85 mg/dL (0.5-1.4) Estimated Creatinine Clearance Calc Not Reportable Estimat Glomerular Filtration Rate > 60 Random Glucose 96 mg/dL (60-115) Estimated Average Glucose 105 mg/dL Hemoglobin A1c Percent 5.3 % (<6.0) Calcium Level 9.2 mg/dL (8.4-10.2) Total Bilirubin 0.6 mg/dL (0.0-1.0) Aspartate Amino Transf (AST/SGOT) 58 U/L (5-37) High Alanine Aminotransferase (ALT/SGPT) 56 U/L (0-40) High Alkaline Phosphatase 62 U/L (39-117) Total Protein 7.2 g/dL (6.5-8.0) Albumin 4.4 g/dL (3.5-5.0) Triglycerides Level 74 mg/dL (<150) Cholesterol Level 209 mg/dL (<200) High LDL Cholesterol, Calculated 113 mg/dL (<100) High HDL Cholesterol 82 mg/dL (>40) Prostate Specific Antigen Screen 1.40 ng/mL (<0.05-4.0) Coding Level of Care Code Est Pt Level 4 (14849) Complex visit Add On G2211 Diagnoses Primary hypertension I10 Hypertension type: primary hypertension Elevated LFTs R79.89 Elevated LDL cholesterol level E78.00 Assessment & Plan Assessment & Plan (1) HTN (hypertension): Code(s): I10 - Essential (primary) hypertension Category: Medical Qualifiers: Hypertension type: primary hypertension Qualified Code(s): I10 - Essential (primary) hypertension (2) Elevated LFTs: Code(s): R79.89 - Other specified abnormal findings of blood chemistry Category: Medical (3) Elevated LDL cholesterol level: Code(s): E78.00 - Pure hypercholesterolemia, unspecified Category: Medical Plan . Orders: Orders Hemoglobin A1c 1 Year E78.00 - Pure hypercholesterolemia, unspecified, I10 - Essential (primary) hypertension, R79.89 - Other specified abnormal findings of blood chemistry Lipid Panel 1 Year E78.00 - Pure hypercholesterolemia, unspecified, I10 - Essential (primary) hypertension, R79.89 - Other specified abnormal findings of blood chemistry Prostate Specific Antigen Scr 1 Year E78.00 - Pure hypercholesterolemia, unspecified, I10 - Essential (primary) hypertension, R79.89 - Other specified abnormal findings of blood chemistry Comprehensive Met. Panel 1 Year E78.00 - Pure hypercholesterolemia, unspecified, I10 - Essential (primary) hypertension, R79.89 - Other specified abnormal findings of blood chemistry Microalbumin, Random (w Creat) 1 Year E78.00 - Pure hypercholesterolemia, unspecified, I10 - Essential (primary) hypertension, R79.89 - Other specified abnormal findings of blood chemistry Medications: Refilled losartan 25 mg PO DAILY 90 tabs 2RF
[2025-03-03 09:40] VITALS: BP 162/80; PULSE 93; RESP 14; TEMP 36.4; O2SAT 98; BMI 26.9
[2025-03-03 10:01] VITALS: BP 138/76
== END 2025-03-03 10:07 | disposition home or self-care (01) ==
LOC: HO.HMCFM 09:36
PROVIDERS: PCP Nurse Practitioner Family; Visit Provider Nurse Practitioner Family
DX: I10 Essential (primary) hypertension (principal); R79.89 Other specified abnormal findings of blood chemistry; E78.00 Pure hypercholesterolemia, unspecified

== ENCOUNTER → 2025-03-03 09:35 | Outpatient (BNVA) | payer OTHER, SELFPAY | PROVIDERS: PCP Nurse Practitioner Family; Visit Provider Nurse Practitioner Family | DX: I10 Essential (primary) hypertension (principal); R74.8 Abnormal levels of other serum enzymes; E78.00 Pure hypercholesterolemia, unspecified; R79.89 Other specified abnormal findings of blood chemistry | CPT/HCPCS: 99212 ==